=== PATIENT | male | born 1970 | race Caucasian/White ===

== ENCOUNTER 2023-08-16 00:13 | Day surgery (SDC) | payer OTHER, SELFPAY ==
[2023-08-09 09:04] VITALS: BMI 35.9
--- NOTE | 2023-08-13 10:14 | SUR.PREOP ---
Patient called and message left on his voicemail with arrival time and clear liquid prep on Wednesday.
[2023-08-16 11:48] VITALS: BP 138/88; PULSE 73; RESP 18; TEMP 36.2; O2SAT 99
--- NOTE | 2023-08-16 11:55 | PM.HPGS ---
History of Present Illness History of Present Illness Consent: Risks, benefits, and alternatives have been discussed and questions answered. Patient agrees to proceed with procedure. Chief complaint: neoplasm screening Narrative: Eric Ruiz is a 53 year old male Presents for screening colonoscopy. Patient's current weight appetite and bowel movements are normal. Patient denies abdominal pain. He he has had no bleeding. Family history noncontributory. Review of Systems Review of Systems: Review of systems noncontributory. [facility] Past Medical History Medical History Obesity (BMI 30-39.9) Sleep apnea with use of continuous positive airway pressure (CPAP) Family History Family History Mother Family history of malignant neoplasm of breast Social History Social History Smoking status: Former smoker Tobacco type: cigarettes Smoking end date: 10/11/98 Alcohol intake: current Alcohol use details: 2 beers daily Substance use: never Substance use type: does not use Lack of Transportation: No Lack of Food: Never True Current Housing: I Have Housing Concerned About Future Housing: No Difficulty Paying Gas/Electric Bills: No Difficulty Paying for Meds: No Currently Unemployed: No Education: Associate Degree Difficulty w/ Childcare or Family Care: No Living arrangements: with family Spiritual care concerns: No Meds Home Medications and Allergies Home Medications Medication Instructions Recorded Confirmed Type ezetimibe 10 mg tablet 10 mg PO DAILY #90 tabs 11/11/21 08/16/23 Rx cetirizine 10 mg tablet (Zyrtec) 10 mg PO DAILY PRN Allergy Symptoms 12/31/21 08/16/23 History fluticasone propionate 50 2 spray intranasal DAILY 12/31/21 08/16/23 History mcg/actuation nasal spray,suspension (Flonase Allergy Relief) hydrochlorothiazide 12.5 mg capsule 12.5 mg PO QAM #90 caps 09/30/22 08/16/23 Rx warfarin 10 mg tablet 10 mg PO DAILY #90 tabs 03/29/23 08/16/23 Rx simvastatin 40 mg tablet 40 mg PO DAILY #90 tabs 08/12/23 08/16/23 Rx Allergies Allergy/AdvReac Type Severity Reaction Status Date / Time No Known Allergies Allergy Verified 08/09/23 09:02 Vital Signs Vital Signs - 24 hr 08/16/23 11:48 Temperature 97.1 F L Pulse Rate 73 Respiratory Rate 18 Blood Pressure 138/88 Pulse Oximetry 99 Oxygen Delivery Room Air Exam Narrative: Physical exam reveals patient to be alert. Vital signs stable. HEENT exam is unremarkable. Patient is anicteric. Lungs are clear to auscultation and percussion. Heart is without murmur or extra sounds. Abdomen bowel sounds are present soft nontender with no organomegaly. Digital external rectal exam is normal. Assessment and Plan Assessment and plan (1) Colon cancer screening: Code(s): Z12.11 - Encounter for screening for malignant neoplasm of colon Status: Acute Assessment and Plan: Patient presents today for screening colonoscopy. He appears to be at average risk for colon polyps. Further recommendations may be given after endoscopy.
[2023-08-16] MEDS: LACTATED RINGERS 1,000 ML 150 ML IV CONT (12:05)
--- NOTE | 2023-08-16 12:15 | WPDANESEPPF ---
Anes - Initial Pre Proc Eval Procedure: Operation Date: 08/16/23 13:00 Proposed Procedures p Colonoscopy - Lito Hughes MD Date/Time: 08/16/23 12:15 Surgeon: Lito Hughes MD Pre Op Diagnosis: neoplasm screening Patient Data Age: 53 Gender: M Height: 1.78 m Weight: 114.6 kg Last Vital Signs Temp 97.1 F L 08/16/23 11:48 Pulse 73 08/16/23 11:48 Resp 18 08/16/23 11:48 BP 138/88 08/16/23 11:48 Pulse Ox 99 08/16/23 11:48 O2 Del Method Room Air 08/16/23 11:48 Allergies Allergy/AdvReac Type Severity Reaction Status Date / Time No Known Allergies Allergy Verified 08/09/23 09:02 Home Medications Medication Instructions Recorded Confirmed Type ezetimibe 10 mg tablet 10 mg PO DAILY #90 tabs 11/11/21 08/16/23 Rx cetirizine 10 mg tablet (Zyrtec) 10 mg PO DAILY PRN Allergy Symptoms 12/31/21 08/16/23 History fluticasone propionate 50 2 spray intranasal DAILY 12/31/21 08/16/23 History mcg/actuation nasal spray,suspension (Flonase Allergy Relief) hydrochlorothiazide 12.5 mg capsule 12.5 mg PO QAM #90 caps 09/30/22 08/16/23 Rx warfarin 10 mg tablet 10 mg PO DAILY #90 tabs 03/29/23 08/16/23 Rx simvastatin 40 mg tablet 40 mg PO DAILY #90 tabs 08/12/23 08/16/23 Rx Laboratory Tests 08/16/23 12:02 PT Pending INR Pending Patient hx anesthesia problems: none Family hx anesthesia problems: none Results Review: All pre-operative results and documents have been reviewed as part of the pre-operative evaluation. [facility] Past Medical History Medical History Obesity (BMI 30-39.9) Sleep apnea with use of continuous positive airway pressure (CPAP) Family History Family History Mother Family history of malignant neoplasm of breast Social History Social History (Reviewed 05/17/23 @ 09:57 by SUZE [place] Smoking status: Former smoker Tobacco type: cigarettes Smoking end date: 10/11/98 Alcohol intake: current Alcohol use details: 2 beers daily Substance use: never Substance use type: does not use Lack of Transportation: No Lack of Food: Never True Current Housing: I Have Housing Concerned About Future Housing: No Difficulty Paying Gas/Electric Bills: No Difficulty Paying for Meds: No Currently Unemployed: No Education: Associate Degree Difficulty w/ Childcare or Family Care: No Living arrangements: with family Spiritual care concerns: No Anes - Eval Final PreProcedure Day of Procedure 08/16/23 12:15 Patient weight: obese Heart: regular rate and rhythm Lungs: clear to auscultation Airway: Mallampati scale class II Neurological: alert and oriented Last oral intake: >/= 8 hours ASA classification: III Emergent: no Anesthetic plan: proceed Anesthesia type and monitoring: general GIVS and standard monitoring Results Review: All pre-operative results and documents have been reviewed as part of the pre-operative evaluation. Informed Consent: The patient's anesthetic plan and its attendant risks and benefits were discussed with the patient/family/POA. Questions were solicited and answers provided to the satisfaction of the patient/family/POA.
[2023-08-16 12:19] LABS: INR 1.6
[2023-08-16 13:33] VITALS: BP 124/78; PULSE 71; RESP 17; O2SAT 99
[2023-08-16 13:43] VITALS: BP 127/86; PULSE 71; RESP 21; O2SAT 100
[2023-08-16 13:53] VITALS: BP 140/88; PULSE 54; RESP 18; O2SAT 97
== END 2023-08-16 13:59 | disposition home or self-care (01) ==
PROVIDERS: PCP Family Medicine; Visit Provider Internal Medicine Gastroenterology
PROC: 0DJD8ZZ Inspection of Lower Intestinal Tract, Via Natural or Artificial Opening Endoscopic (ICD-10-PCS; CPT 45378; principal; 2023-08-16 13:00)
DX: Z12.11 Encounter for screening for malignant neoplasm of colon (principal); D12.2 Benign neoplasm of ascending colon; K64.8 Other hemorrhoids; G47.30 Sleep apnea, unspecified; E66.9 Obesity, unspecified; Z68.36 Body mass index [BMI] 36.0-36.9, adult; Z87.891 Personal history of nicotine dependence; Z79.01 Long term (current) use of anticoagulants; Z99.89 Dependence on other enabling machines and devices; Z80.3 Family history of malignant neoplasm of breast
CPT/HCPCS: 45385; 36415; 85610; 88305; J2704; J7120

== ENCOUNTER 2023-08-23 14:35 | Outpatient (CLI) | payer OTHER, SELFPAY ==
[2023-08-23 15:27] LABS: Hematocrit 37.4 % (42.0-52.0); Hemoglobin 12.7 g/dL (14.0-18.0); Mean Corpuscular Hemoglobin 30.6 pg (26-34); Mean Corpuscular Volume 90.1 fl (80-100); Mean Platelet Volume 9.5 fl (7.4-10.4); Platelet Count Result 238 k/mm3 (150-375); Red Blood Count 4.15 M/mm3 (4.6-6.20); Red Cell Distribution Width 13.2 % (11.5-14.5); White Blood Count 7.4 K/mm3 (4.5-10.0)
== END 2023-08-23 14:36 | disposition home or self-care (01) ==
PROVIDERS: PCP Family Medicine; Visit Provider Nurse Practitioner
DX: K92.1 Melena (principal)
CPT/HCPCS: 36415; 85027